=== PATIENT | male | born 1940 | race Caucasian/White ===

== ENCOUNTER 2017-06-25 17:08 | Emergency (ER) | payer MEDICARE, OTHER ==
[~2017-06-25] VITALS: Ht 162.6 cm; Wt 70.0 kg
[~2017-06-25 17:08] MED LIST: CIPR500T2 PO; ENAL20TA PO; HYDR12.56 PO; MEVA40TA PO; NIAC500 PO; SERT50 PO; TAB-TAB PO; TERA10CA3 PO
[2017-06-25 17:15] VITALS: BP 142/80; PULSE 83; RESP 16; TEMP 97.8; O2SAT 95
[2017-06-25] MEDS ORDERED: CARB25TA9 PO (17:34)
[2017-06-25] MEDS ORDERED: LATA0.002 EACH EYE (17:34)
[2017-06-25] MEDS ORDERED: ZOLP5TAB3 PO (17:34)
[2017-06-25] MEDS ORDERED: ENAL20TA PO (17:34)
[2017-06-25] MEDS ORDERED: ROPI1TAB PO (17:34)
[2017-06-25] MEDS ORDERED: SERT-132 PO (17:34)
[2017-06-25] MEDS ORDERED: HYDR12.56 PO (17:34)
[2017-06-25] MEDS ORDERED: LOVA40TA PO (17:34)
--- NOTE | 2017-06-25 17:38 | PD ---
HPI Chief Complaint: Fall Time Seen by Provider: 17:23 Travel History International Travel<30 days: No Contact w/Intl Traveler<30days: No Traveled to known affect area: No History of Present Illness HPI 76-year-old male complains of forehead laceration and facial pain. Patient fell while getting out of the shower this afternoon. Patient states that he struck his face on the floor while falling down. Patient denies loss of consciousness. Patient denies any headache. Patient complained of sharp burning pain on the forehead and the nose. Patient denies any visual change. Patient denies any neck pain. Patient denies any chest pain or shortness of breath. Patient denies abdominal pain. Patient denies any extremity injury. Patient denies any back pain. Patient denies any focal weakness or numbness of the extremity. Patient is not sure of TD status. PFSH Past Medical History Depression: Yes High Cholesterol: Yes Diminished Hearing: No Glaucoma: Yes Hypertension: Yes Parkinson's Disease: Yes Influenza Vaccination: Yes ?: Not Past Surgical History Abdominal Surgery: Yes (biliary obstruction, fistula) Coronary Stent: Yes Tonsillectomy: Yes Other Surgery: Yes (deviated septum) Social History Alcohol Use: Yes (couple of times month) Tobacco Use: No Substance Use: No Allergies-Medications (Allergen,Severity, Reaction): Coded Allergies: No Known Allergies (Verified Adverse Reaction, Unknown, 06/25/17) Reported Meds & Prescriptions Reported Meds & Active Scripts Active Reported Ropinirole 1 Mg Tab 1 Mg PO TID Lovastatin 40 Mg Tab 40 Mg PO DAILY Latanoprost Opth Drops (Latanoprost) 0.005% Drops 1 Drop EACH EYE HS Refrigerate until opened. Zolpidem (Zolpidem Tartrate) 5 Mg Tab 5 Mg PO HS PRN Hydrochlorothiazide 12.5 Mg Tab 12.5 Mg PO DAILY Carbidopa-Levodopa 25-100 Mg Tab 1 Tab PO Q8HR Sertraline (Sertraline HCl) 50 Mg Tab 50 Mg PO DAILY Enalapril (Enalapril Maleate) 20 Mg Tab 20 Mg PO DAILY Review of Systems General / Constitutional: No: Fever Eyes: No: Visual changes HENT: Positive: Headaches Cardiovascular: No: Chest Pain or Discomfort Respiratory: No: Shortness of Breath Gastrointestinal: No: Abdominal Pain Genitourinary: No: Dysuria Musculoskeletal: No: Pain Skin: No Rash Neurologic: No: Weakness Psychiatric: No: Depression Endocrine: No: Polydipsia Hematologic/Lymphatic: No: Easy Bruising Physical Exam Narrative GENERAL: Well-nourished, well-developed patient. SKIN: Focused skin assessment warm/dry. HEAD: Normocephalic. Patient has a 3 cm laceration to the forehead. Soft tissue swelling noted. EYES: No scleral icterus. No injection or drainage. Pupils 2 mm equal reactive. Patient has obvious deformity of the nose. No septal hematoma. No active bleeding from the nose. NECK: Supple, trachea midline. No JVD or lymphadenopathy. No tenderness on palpation of the neck. CARDIOVASCULAR: Regular rate and rhythm without murmurs, gallops, or rubs. RESPIRATORY: Breath sounds equal bilaterally. No accessory muscle use. GASTROINTESTINAL: Abdomen soft, non-tender, nondistended. MUSCULOSKELETAL: No cyanosis, or edema. BACK: Nontender without obvious deformity. No CVA tenderness. Neurologic exam: Patient's awake and alert oriented to place and person. Patient moves all extremity well. No obvious focal neurological deficit. Data Data Last Documented VS Vital Signs Date Time Temp Pulse Resp B/P (MAP) Pulse Ox O2 Delivery O2 Flow Rate FiO2 06/25/17 17:15 97.8 83 16 142/80 (100) [address] Brain W/O Iv Contrast(Rout) (06/25/17 17:31) Ct Facial Bones W/O Iv Cont (06/25/17 17:31) Tetanus/Diphtheria Tox Adult (Tetanus/Di (06/25/17 18:00) Ed Discharge Order (06/25/17 18:52) MDM Medical Decision Making Medical Screen Exam Complete: Yes Emergency Medical Condition: Yes Interpretation(s) Last Impressions Maxillofacial CT 06/25/171730 Signed Impressions: Service Date/Time: Sunday, June 25, 2017 18:07 - CONCLUSION: Nasal bone and nasal ala fractures. Otherwise negative with otherwise intact facial bones Virgilio Peters MD Head CT 06/25/171730 Signed Impressions: Service Date/Time: Sunday, June 25, 2017 18:07 - CONCLUSION: Extensive deep white matter microvascular ischemic demyelinization. No acute intracranial abnormality with intact bony calvarium. Superficial soft tissue swelling in the frontal for head region midline and to the right Virgilio Peters MD Differential Diagnosis Differential diagnosis including laceration, head injury, facial injury. Narrative Course 76-year-old male with forehead and facial injury. TD booster given. Procedures Procedure Narrative Saline wash. Dermabond applied to the forehead laceration. Diagnosis Primary Impression: Forehead laceration Qualified Codes: S01.81XA - Laceration without foreign body of other part of head, initial encounter Additional Impression: Closed fracture nose Qualified Codes: S02.2XXA - Fracture of nasal bones, initial encounter for closed fracture Patient Instructions: General Instructions Additional Instructions: Head trauma instructions given. Keep the wound clean and dry for 10 days. Follow-up with maxillofacial surgeon or plastic surgeon for fractured nose. Med/Other Pt SpecificInfo: No Change to Meds Disposition: 01 DISCHARGE HOME Condition: Stable Aram Grubbs MD Jun 25, 2017 17:37
[2017-06-25] MEDS ORDERED: TETANUS/DIPHTHERIA TOXOID ADULT 0.5 ML VIAL IM ONE (18:00)
--- NOTE | 2017-06-25 18:20 | RADRPT ---
EXAM DATE/TIME: 06/25/2017 18:07 [facility] COMPARISON: No previous studies available for comparison. INDICATIONS : Fall, laceration to forehead, nasal deformity RADIATION DOSE: 66.18 CTDIvol (mGy) MEDICAL HISTORY : Parkinson's. Cardiovascular disease Hypercholesterolemia.HTN, Glaucoma SURGICAL HISTORY : Tonsillectomy. Biliary obstruction, Deviated septum ENCOUNTER: Initial ACUITY: 1 day PAIN SCALE: 8/10 LOCATION: cranial TECHNIQUE: Multiple contiguous axial images were obtained of the head. Using automated exposure control and adj ustment of the mA and/or kV according to patient size, radiation dose was kept as low as reasonably a chievable to obtain optimal diagnostic quality images. DICOM format image data is available electro nically for review and comparison. FINDINGS: CEREBRUM: The ventricles are normal for age. No evidence of midline shift, mass lesion, hemorrhage or acute in farction. No extra-axial fluid collections are seen. Extensive deep white matter microvascular ische hussain demyelinization. POSTERIOR FOSSA: The cerebellum and brainstem are intact. The 4th ventricle is midline. The cerebellopontine angle i s unremarkable. EXTRACRANIAL: The visualized portion of the orbits is intact. SKULL: The calvaria is intact. No evidence of skull fracture. Soft tissue swelling midline and slightly to the right of midline superficial calvarium in the frontal region CONCLUSION: Extensive deep white matter microvascular ischemic demyelinization. No acute intracranial abnormality with intact bony calvarium. Superficial soft tissue swelling in the frontal for head region midline and to the right Virgilio Peters MD on June 25, 2017 at 18:17 Board Certified Radiologist. This report was verified electronically.
--- NOTE | 2017-06-25 18:34 | RADRPT ---
EXAM DATE/TIME: 06/25/2017 18:07 [facility] COMPARISON: CT BRAIN W/O CONTRAST, June 25, 2017, 18:07. INDICATIONS : Fall, laceration to forehead,, nasal deformity RADIATION DOSE: 34.86 CTDIvol (mGy) MEDICAL HISTORY : Cardiovascular disease. Parkinsons. Hypercholesterolemia.HTN,Glaucoma SURGICAL HISTORY : Tonsillectomy. Deviated septum, Biliary obstruction ENCOUNTER: Initial ACUITY: 1 day PAIN SCORE: 8/10 LOCATION: forehead TECHNIQUE: Volumetric scanning of the facial bones was performed. Using automated exposure control and adjustme nt of the mA and/or kV according to patient size, radiation dose was kept as low as reasonably achiev able to obtain optimal diagnostic quality images. DICOM format image data is available [employer] y for review and comparison. FINDINGS: ORBITS: The orbital and infraorbital osseous structures are intact. The retroconal structures have a normal configuration. No radiopaque foreign bodies are seen. NASAL BONE: There is a fracture slightly depressed tip of the nasal bone with fractures of the adjacent nasal ala bilaterally. ZYGOMATIC ARCHES: Symmetric without evidence of fracture. SINUSES: The maxillary, ethmoid and frontal sinuses are intact. No air-fluid levels seen. NASAL CAVITY: The nasal septum is intact and midline. The lacrimal ducts are intact. SOFT TISSUES: No radiopaque foreign bodies seen. No soft-tissue swelling is seen. INTRACRANIAL: No intracranial air seen. CRIBIFORM PLATE: Grossly intact. CONCLUSION: Nasal bone and nasal ala fractures. Otherwise negative with otherwise intact facial bones Virgilio Peters MD on June 25, 2017 at 18:29 Board Certified Radiologist. This report was verified electronically.
[2017-06-25 19:12] VITALS: BP 138/74; TEMP 98.2
== END 2017-06-25 19:13 | disposition home or self-care (01) ==
LOC: PHED 17:08
DX: S01.81XA Laceration without foreign body of other part of head, initial encounter (principal); S02.2XXA Fracture of nasal bones, initial encounter for closed fracture; Z23 Encounter for immunization; F32.9 Major depressive disorder, single episode, unspecified; E78.00 Pure hypercholesterolemia, unspecified; I10 Essential (primary) hypertension; G20 Parkinson's disease; H40.9 Unspecified glaucoma; Z95.5 Presence of coronary angioplasty implant and graft; W19.XXXA Unspecified fall, initial encounter
CPT/HCPCS: 12013; 70450; 70486; 90471; 90714